=== PATIENT | female | born 1955 | race African-American/Black ===

== ENCOUNTER 2022-07-05 10:12 | Emergency (ER) | payer MEDICARE, MEDICAID ==
[~2022-07-05] VITALS: Ht 162.6 cm; Wt 60.0 kg
[2022-07-05] MEDS ORDERED: SODIUM CHLORIDE 0.9% 1,000 ML IV ONE (10:30)
[2022-07-05 11:09] LABS: BASOPHILS % 0.8 % (0.0-2.0); EOSINOPHILS % 1.9 % (0.0-5.0); HEMATOCRIT. 35.4 % (36.0-48.0); LYMPHOCYTES % 29.8 % (20.0-50.0); MEAN CORPUSCULAR HEMOGLOBIN 24.1 pg (28.0-32.0); MEAN CORPUSCULAR VOLUME 77.1 fL (81.0-99.0); MEAN PLATELET VOLUME 9.5 fl (7.4-10.4); MONOCYTES % 8.1 % (2.0-8.0); NEUTROPHILS % 59.4 % (40.0-76.0); PLATELET 133 x1000/uL (130-400); RED BLOOD CELL COUNT 4.58 mill/uL (4.2-5.4); RED CELL DISTRIBUTION WIDTH 18.1 % (11.6-14.6)
[2022-07-05 11:14] LABS: CHLORIDE 102 mEq/L (98-107)
[2022-07-05 11:24] LABS: BETA HYDROXYBUTYRATE 0.2 mMol/L (0.0-0.3)
[2022-07-05 11:55] LABS: BG BASE EXCESS 0.3 mmol/L (-2.0-2.0); BG CARBOXYHEMOGLOBIN 0.5 % (0.5-1.5); BG DEOXYHEMOGLOBIN 3.2 % (0.0-5.0); BG FRACTION INSPIRED OXYGEN 21; BG HCO3 ACT 24.7 mmol/L (22.0-26.0); BG METHEMOGLOBIN 0.2 % (0.0-1.5); BG OXYGEN SATURATION 96.8 % (92.0-98.5); BG OXYHEMOGLOBIN 96.1 % (94.0-97.0); BG PCO2 39.2 mmHg (35.0-45.0); BG PH 7.418 (7.350-7.450); BG PO2 97.8 mmHg (75.0-100.0); BG SAMPLE SITE LEFT BRACHIAL; BG TOTAL HEMOGLOBIN 10.9 g/dL (12.0-18.0); BG VENT MODE ROOM AIR
[2022-07-05] MEDS ORDERED: METOCLOPRAMIDE HCL 10MG/2ML VIAL IV ONE (12:00)
[2022-07-05] MEDS ORDERED: INSULIN REGULAR (HUMULIN R) 300UNITS/3ML VIAL SUBCUT ONE (12:00)
[2022-07-05] MEDS ORDERED: KETOROLAC 30MG/ML VIAL IV ONE (12:00)
[2022-07-05 12:12] LABS: CLARITY URINE CLEAR (CLEAR); COLOR URINE YELLOW (YELLOW); KETONES URINE NEGATIVE (NEGATIVE); LEUKOCYTE ESTERASE URINE NEGATIVE (NEGATIVE); NITRITE URINE NEGATIVE (NEGATIVE); OCCULT BLOOD URINE NEGATIVE (NEGATIVE); PH URINE 6.5 (4.5-8.0); PROTEIN URINE NEGATIVE (NEGATIVE); SPECIFIC GRAVITY URINE 1.018 (1.005-1.030); UROBILINOGEN URINE 0.2 E.U./dL (0.2-1.0)
[2022-07-05 15:29] VITALS: BP 109/61
== END 2022-07-05 15:33 | disposition home or self-care (01) ==
LOC: ER 10:22
DX: E11.65 Type 2 diabetes mellitus with hyperglycemia (principal); Z86.19 Personal history of other infectious and parasitic diseases; Z91.041 Radiographic dye allergy status
CPT/HCPCS: 36415; 36600; 71045; 80053; 81003; 82010; 82375; 82805; 82962; 84484; 85025; 93005; 96361; 96372; 96374; 96375; 99285; J1815; J1885; J2765; J7030